=== PATIENT | female | born 1960 | race African-American/Black ===

== ENCOUNTER 2017-08-30 15:26 | Emergency (ER) | payer MEDICARE, MEDICAID ==
[~2017-08-30] VITALS: Ht 175.3 cm; Wt 75.0 kg
[2017-08-30] MEDS ORDERED: OMEP20TA15 PO (15:59)
[2017-08-30 16:29] LABS: BASOPHILS % 0.4 % (0.0-2.0); EOSINOPHILS % 1.1 % (0.0-5.0); HEMATOCRIT. 39.4 % (36.0-48.0); HEMOGLOBIN. 13.5 g/dL (12.0-16.0); MEAN CORPUSCULAR HEMOGLOBIN 32.1 pg (28.0-32.0); MEAN CORPUSCULAR VOLUME 93.6 fL (81.0-99.0); MEAN PLATELET VOLUME 10.8 fl (7.4-10.4); MONOCYTES % 6.5 % (2.0-8.0); PLATELET 193 x1000/uL (130-400); RED BLOOD CELL COUNT 4.21 mill/uL (4.2-5.4); RED CELL DISTRIBUTION WIDTH 13.9 % (11.6-14.6)
[2017-08-30 16:32] LABS: CHLORIDE 111 mEq/L (98-107)
[2017-08-30 16:35] LABS: PROTHROMBIN TIME 10.8 sec (9.4-11.6)
[2017-08-30 17:37] LABS: CLARITY URINE TURBID (CLEAR); COLOR URINE YELLOW (YELLOW); KETONES URINE NEGATIVE (NEGATIVE); LEUKOCYTE ESTERASE URINE TRACE (NEGATIVE); NITRITE URINE NEGATIVE (NEGATIVE); OCCULT BLOOD URINE NEGATIVE (NEGATIVE); PH URINE 7.5 (4.5-8.0); PROTEIN URINE NEGATIVE (NEGATIVE); SPECIFIC GRAVITY URINE 1.016 (1.005-1.030); UROBILINOGEN URINE 0.2 E.U./dL (0.2-1.0)
[2017-08-30] MEDS ORDERED: MORPHINE SULFATE 2 MG/ML CPJ (NOT FOR IM USE) IV ONE (18:30)
[2017-08-30] MEDS ORDERED: DIPHENHYDRAMINE 50MG/ML VIAL IV ONE (18:30)
[2017-08-30] MEDS ORDERED: MORPHINE SULFATE 4 MG/ML CPJ (NOT FOR IM USE) IV ONE (18:43)
[2017-08-30 20:00] VITALS: BP 134/86
[2017-08-30] MEDS ORDERED: MAGNESIUM/ALUMINUM HYDROXIDE/SIMETHICONE 30ML UDC PO ONE (20:00)
== END 2017-08-30 21:38 | disposition home or self-care (01) ==
LOC: ER 16:21
DX: K29.70 Gastritis, unspecified, without bleeding (principal); K21.9 Gastro-esophageal reflux disease without esophagitis; Z88.5 Allergy status to narcotic agent; Z98.890 Other specified postprocedural states; Z88.6 Allergy status to analgesic agent
CPT/HCPCS: 36415; 71045; 80053; 81003; 83690; 84484; 85025; 85610; 85730; 93005; 96374; 96375; 99285; J1200; J2270

== ENCOUNTER 2018-04-05 08:20 | Day surgery (SDC) | payer MEDICARE, MEDICAID ==
[~2018-04-05] VITALS: Ht 167.6 cm; Wt 77.1 kg
[~2018-04-05 08:20] MED LIST: OMEP20TA15 PO
[2018-04-05] MEDS ORDERED: SIMETHICONE 40 MG/0.6 ML 30ML ONE (08:57)
[2018-04-05 09:17] LABS: BASOPHILS % 0.4 % (0.0-2.0); EOSINOPHILS % 0.3 % (0.0-5.0); HEMATOCRIT. 41.7 % (36.0-48.0); HEMOGLOBIN. 14.1 g/dL (12.0-16.0); LYMPHOCYTES % 29.7 % (20.0-50.0); MEAN CORPUSCULAR HEMOGLOBIN 31.6 pg (28.0-32.0); MEAN CORPUSCULAR VOLUME 93.7 fL (81.0-99.0); MEAN PLATELET VOLUME 10.7 fl (7.4-10.4); MONOCYTES % 6.5 % (2.0-8.0); NEUTROPHILS % 63.1 % (40.0-76.0); PLATELET 156 x1000/uL (130-400); RED BLOOD CELL COUNT 4.45 mill/uL (4.2-5.4); RED CELL DISTRIBUTION WIDTH 13.7 % (11.6-14.6)
[2018-04-05 09:26] LABS: CHLORIDE 107 mEq/L (98-107)
[2018-04-05] MEDS ORDERED: SODIUM CHLORIDE 0.9% 1,000 ML IV ONE (09:47)
[2018-04-05] MEDS ORDERED: ONDANSETRON HCL 4MG/2ML INJ IV PRN (10:00)
[2018-04-05] MEDS ORDERED: HYDROMORPHONE HCL/PF 2MG/ML CPJ IV PRN (10:00)
[2018-04-05] MEDS ORDERED: SUCCINYLCHOLINE CHLORIDE 200MG/10ML IV ONE (10:07)
[2018-04-05] MEDS ORDERED: LIDOCAINE HCL/PF 1% 10 MG/ML 5ML VIAL ONE (10:07)
[2018-04-05] MEDS ORDERED: PROPOFOL 200MG/20ML VIAL IV ONE ×2 (10:07→10:37)
[2018-04-05] MEDS ORDERED: MIDAZOLAM HCL 5 MG/5 ML VIAL ONE (10:07)
[2018-04-05] MEDS ORDERED: NAPR220T66 PO (10:57)
[2018-04-05] MEDS ORDERED: PANT40TA4 PO (10:57)
[2018-04-05] MEDS ORDERED: FLUT15.88 NS (10:57)
== END 2018-04-05 12:30 | disposition home or self-care (01) ==
LOC: OR 08:20
PROVIDERS: ATTEND Internal Medicine Gastroenterology
DX: Z12.11 Encounter for screening for malignant neoplasm of colon (principal); D12.5 Benign neoplasm of sigmoid colon; K64.8 Other hemorrhoids; K21.9 Gastro-esophageal reflux disease without esophagitis; Z98.890 Other specified postprocedural states; Z79.899 Other long term (current) drug therapy; Z88.6 Allergy status to analgesic agent; Z88.5 Allergy status to narcotic agent
CPT/HCPCS: 36415; 45380; 80048; 85025; 88305; 93005; J0330; J2250; J3490; J2704